=== PATIENT | female | born 1960 | race Caucasian/White ===

== ENCOUNTER → 2020-05-14 | Outpatient (CLI) | payer OTHER ==
--- NOTE | 2020-05-14 13:44 | REP ---
INDICATION: Z12.31 SCREENING MAMMO. COMPARISON: None. TECHNIQUE: MLO and CC views of bilateral breasts performed with tomosynthesis. FINDINGS: Mild scattered fibroglandular tissue is present bilaterally. In the upper outer quadrant of the right breast 2 oval smoothly marginated nodules are visualized, 1 measuring 9 x 5 mm and the other 6 mm. These appear to represent lucent centers and I suspect these represent intramammary lymph nodes. On the left posteriorly and inferiorly there is a partially visualized somewhat nodular opacity. On the CC view it measures about 5 mm. Is questionably seen posteriorly on the MLO view. No other evidence of mass or clustered microcalcifications. The Volpara volumetric breast density pattern is A. IMPRESSION: BIRADS/ACR category 0, incomplete. Possible posteroinferior nodular opacity left breast. Recommend spot compression views and ultrasound to further evaluate. On the right there are 2 suspected subcentimeter intramammary lymph nodes in the upper outer quadrant. Recommend ultrasound to confirm. This patient's Tyrer-Cuzick lifetime breast cancer risk assessment score is 6.9%. This mammogram was interpreted with the aid of an FDA-approved computer-aided detection system. The patient states she had a clinical breast exam in April 2020. The patient letter being requested is M0. RECOMMENDATION: Recommend spot compression views left breast and bilateral breast ultrasound as discussed in detail above. <Electronically signed by Goran Escudero > 05/14/20 [id number]
== END ==
LOC: M WHC 12:22
PROVIDERS: ATTEND Obstetrics & Gynecology
DX: Z12.31 Encounter for screening mammogram for malignant neoplasm of breast (principal); N63.11 Unspecified lump in the right breast, upper outer quadrant

== ENCOUNTER → 2020-06-13 | Outpatient (CLI) | payer OTHER ==
--- NOTE | 2020-06-13 12:36 | REP ---
INDICATION: ADDITIONAL VIEWS LT BREAST; ADDITIOAN VIEW LT BREAST . COMPARISON: Comparison mammography 14 May 2020. TECHNIQUE: Magnified focal spot-compression CC mL and MLO views of the left breast are obtained. Targeted left breast sonography is carried out. Targeted right breast sonography is carried out due to the findings of a 2 small mixed density nodular structures in the upper outer quadrant on the right on screening mammography. This mammogram was interpreted with the aid of an FDA-approved computer-aided detection system. FINDINGS: Diagnostic mammography demonstrates a questionable 5 mm nodular opacity in the posterior aspect of the left breast at 6 o'clock. The breast is otherwise predominantly fat replaced. A. Targeted ultrasound: Right breast sonography is performed. A 5 mm hypoechoic areas seen at 11 o'clock consistent with a small cyst. No other sonographic abnormality is noted in the right breast. The left breast sonography inferiorly demonstrates a 6.7 x 5.1 x 4.5 cm oval-shaped hypoechoic lesion located 7.0 cm from the nipple which is felt to account for the mammographic opacity. Appearance suggests clustered microcysts or hypoechoic nodule. It does not meet criteria of a simple cyst. No other sonographic abnormality is seen. IMPRESSION: BIRADS/ACR category 4 suspicious left breast mammographic and sonographic findings. 7 mm hypoechoic lesion at 6 o'clock most likely accounting for the mammographic density. Histologic sampling recommended. BI-RADS category 2 sonographic findings on the right. This patient's Tyrer-Cuzick lifetime breast cancer risk assessment score is 6.9%. RECOMMENDATION: Ultrasound-guided needle biopsy procedure recommended 6 o'clock position left breast with marker clip placement and post clip placement left breast mammography.. The patient letter being requested is M4. <Electronically signed by Marquise Read > 06/13/20 [id number]
== END ==
LOC: M WHC 09:47
PROVIDERS: ATTEND Advanced Practice Midwife
DX: R92.8 Other abnormal and inconclusive findings on diagnostic imaging of breast (principal); N63.23 Unspecified lump in the left breast, lower outer quadrant

== ENCOUNTER → 2020-07-17 | Outpatient (CLI) | payer OTHER ==
[~2020-07-17] MED LIST: PROT1TAB2 PO
[2020-07-17 10:10] VITALS: BP 148/84
--- NOTE | 2020-07-17 10:25 | REP ---
INDICATION: US GUIDED BX/R92.8 ABN LEFT BREAST MAMMO. COMPARISON: Comparison mammography May 14, 2020. Comparison sonography June 13, 2020.. TECHNIQUE: Mediolateral, MLO, and CC views of the left breast are obtained post clip placement. FINDINGS: The needle biopsy marker clip is seen in good position far posteriorly in the 6 o'clock position of the left breast where prior mammography showed the small nodule. No evidence of hematoma. IMPRESSION: Needle biopsy marker clip in good position left breast 6 o'clock position. <Electronically signed by Marquise Read > 07/17/20 [id number]
--- NOTE | 2020-07-17 10:46 | REP ---
INDICATION: R92.8 ABN LEFT MAMMO/US GUIDED BX. COMPARISON: Comparison sonography June 13, 2020.. TECHNIQUE: Sonographic guidance. FINDINGS: Ultrasound guidance is provided to Dr. Almonte performed ultrasound-guided needle biopsy procedure of the left breast 6 o'clock lesion with marker clip placement. IMPRESSION: Procedural imaging. <Electronically signed by Marquise Read > 07/17/20 [id number]
--- NOTE | 2020-07-20 12:09 | ROOPDOC ---
[facility] Report Of Operation Report of Operation DATE OF PROCEDURE: 07/17/20 DIAGNOSIS: left breast suspicious lesion PROCEDURE: Ultrasound guided biopsy of left breast suspicious lesion with clip placement SURGEON: Jeremy Lopez BLOOD LOSS: minimal COMPLICATIONS: none Lidocaine 1% LOT [id number] Expiration 07/2023 Sodium Bicarbonate 8.4% LOT [id number] Expiration 05/2021 Hydromark clip LOT [id number] Expiration 02/2023 SHAPE : 3 Bx device: BARD [id number] x10 cm LOT [id number] Expiration 04/2021 Informed consent was obtained. The most common risk and possible complications including bleeding, hematoma, bruising, infection, injury to surrounding structures were explained to the patient and the patient expressed understanding. Patient was placed on the bed in the supine position. Appropriate time out was done stating patients name, date of , and the procedure to be performed. The left breast was prepped and draped in the usual fashion. The ultrasound was used to confirm the location of the lesion in the left breast at 6:00 4 centimeters from the nipple. Plain Lidocaine 1% and 8.4% sodium bicarbonate 10:1 mix was used to anesthetize the skin, the biopsy site and tissues along the anticipated biopsy tract. Small skin incision was made with blade number 11. BARD Marquee 14G cannula with introducer ([id number]) was inserted through the incision and advanced under the ultrasound guidance to position immediately adjacent to the lesion. Next, the introducer was removed and BARD Marquee 14G biopsy device was places in the cannula. Pre-biopsy imaging, and post-biopsy imaging were captured. Three good core biopsies were taken at various levels of the lesion. No additional biopsies were taken as the lesion became poorly visible on sono. Specimen was placed in formaldehyde, labeled with appropriate biopsy site and patients name, and sent to pathology for evaluation. Next, the biopsy device was withdrawn and a clip introducer was inserted into the biopsy site via the cannula. The SHAPE 3 Hydromark clip was deployed under sonographic guidance. Post-clip placement image was captured. Manual pressure over the biopsy cavity and tract was held after the clip introducer was withdrawn. No bleeding was noted upon removal of the pressure. Post-biopsy mammogram of the left breast was obtained and showed clip in expected position. Postprocedural dressing was placed. Patient tolerated procedure well. Discharge instructions were discussed with the patient and the patient expressed understanding. JEREMY LOPEZ DO Jul 20, 2020 12:09
== END ==
LOC: M WHCPRO 06:31
PROVIDERS: ATTEND Surgery
DX: N60.92 Unspecified benign mammary dysplasia of left breast (principal)

== ENCOUNTER → 2020-08-01 | Outpatient (CLI) | payer OTHER ==
[~2020-08-01] MED LIST changes: +ULTR50TA8 PO
== END ==
LOC: M LABSMTC 10:45
PROVIDERS: ATTEND Anesthesiology
DX: Z01.812 Encounter for preprocedural laboratory examination (principal); Z20.822 Contact with and (suspected) exposure to COVID-19

== ENCOUNTER 2020-08-06 08:25 | Day surgery (SDC) | payer OTHER ==
[~2020-08-06] VITALS: Ht 149.9 cm; Wt 102.1 kg
[~2020-08-06 08:25] MED LIST changes: +HEPARIN SOD (PORCINE) 5000UNITS/ML 1ML VIAL/SYRINGE SQ ONE; +LR 1,000 ML IV ONE; +NS 1,000 ML IV SCH; -ULTR50TA8 PO
[2020-08-06] MEDS ORDERED: ceFAZolin 2 GM/D5W 50 ML IV BAG (J0690 PER 500MG) As Ordered ONE (09:09)
[2020-08-06] MEDS ORDERED: LIDOCAINE 1% MDV 20ML VIAL As Ordered ONE (09:30)
[2020-08-06] MEDS ORDERED: BUPIVACAINE HCL 0.25% 10ML VIAL As Ordered ONE (09:30)
[2020-08-06] MEDS ORDERED: CLINDAMYCIN 900 MG/50 ML PREMIX BAG As Ordered ONE (09:30)
[2020-08-06] MEDS ORDERED: CLINDAMYCIN 900 MG in IV 1 EA IV ONE (09:45)
[2020-08-06] MEDS ORDERED: MIDAZOLAM INJ 2MG/2ML VIAL (J2250 PER 1MG) As Ordered ONE (10:05)
[2020-08-06] MEDS ORDERED: dexameTHASONE 4 MG/ML 1ML VIAL (J1100 PER 1MG) As Ordered ONE (10:05)
[2020-08-06] MEDS ORDERED: ONDANSETRON 4MG/2ML VIAL As Ordered ONE (10:05)
[2020-08-06] MEDS ORDERED: fentaNYL 250 MCG/5 ML INJECTION (J3010) As Ordered ONE (10:05)
[2020-08-06] MEDS ORDERED: propofoL 200 MG/20 ML VIAL As Ordered ONE (10:05)
[2020-08-06] MEDS ORDERED: PHENYLephrine 500MCG 5ML (100MCG/ML) SYRINGE As Ordered ONE ×2 (10:05→10:23)
[2020-08-06] MEDS ORDERED: LIDOCAINE 2% 100MG/5ML SDV (FOR ANES.) As Ordered ONE (10:05)
[2020-08-06] MEDS ORDERED: ROCURONIUM BROMIDE 50 MG/5 ML VIAL As Ordered ONE (10:05)
[2020-08-06] MEDS ORDERED: ACETAMINOPHEN 1000MG 100ML IV BTL (OFIRMEV) (J0131 PER 10MG) As Ordered ONE (10:59)
--- NOTE | 2020-08-06 10:59 | REP ---
INDICATION: LEFT ATYPICAL DUCTAL HYPERPLASIA. COMPARISON: Mammogram 07/17/2020, ultrasound 06/13/2020. TECHNIQUE: Ultrasound guidance was provided for Dr. Almonte performed ultrasound-guided wire localization of the HydroMARK clip in the posterior left breast. FINDINGS: Ultrasound guidance was provided for Dr. Almonte performed ultrasound-guided wire localization of the HydroMARK clip in the posterior left breast. IMPRESSION: Ultrasound guidance was provided for Dr. Almonte performed ultrasound-guided wire localization of the HydroMARK clip in the posterior left breast. <Electronically signed by Goran Escudero > 08/06/20 2317
[2020-08-06] MEDS ORDERED: ePHEDrine SULFATE 25 MG/5 ML(5MG/ML) SYRINGE As Ordered ONE (11:00)
[2020-08-06] MEDS ORDERED: SUGAMMADEX SODIUM 500 MG/5 ML VIAL (BRIDION) As Ordered ONE (11:03)
[2020-08-06] MEDS ORDERED: ULTR50TA8 PO (11:42)
[2020-08-06] MEDS ORDERED: fentaNYL 100 MCG/2 ML INJECTION (J3010) IV PRN (11:55)
[2020-08-06] MEDS ORDERED: METOCLOPRAMIDE INJ 10MG/2ML VIAL (J2765 PER 1) IV PRN (11:55)
[2020-08-06] MEDS ORDERED: LR 1,000 ML IV SCH (11:55)
[2020-08-06] MEDS ORDERED: oxyCODONE 5MG TAB PO PRN (11:55)
[2020-08-06] MEDS ORDERED: ONDANSETRON 4MG/2ML VIAL IV PRN (11:55)
[2020-08-06 13:13] VITALS: BP 132/82
--- NOTE | 2020-08-08 16:49 | REP ---
INDICATION: LEFT ATYPICAL DUCTAL HYPERPLASIA. COMPARISON: 07/17/2020. TECHNIQUE: Two specimen radiographs performed following lumpectomy. FINDINGS: Previously identified biopsy clip is noted within the surgical specimen. The closest tissue margin to the clip is approximately 8 mm. IMPRESSION: Biopsy clip within the surgical specimen status post lumpectomy. RECOMMENDATION: Clinical follow-up. <Electronically signed by Goran Escudero > 08/08/20 [id number]
== END 2020-08-06 14:01 | disposition home or self-care (01) ==
LOC: M SDC 08:25
PROVIDERS: ATTEND Surgery
DX: N60.82 Other benign mammary dysplasias of left breast (principal); K21.9 Gastro-esophageal reflux disease without esophagitis; E03.9 Hypothyroidism, unspecified; M79.7 Fibromyalgia; K90.0 Celiac disease; M32.9 Systemic lupus erythematosus, unspecified; K57.92 Diverticulitis of intestine, part unspecified, without perforation or abscess without bleeding; F41.9 Anxiety disorder, unspecified; Z80.9 Family history of malignant neoplasm, unspecified; Z79.899 Other long term (current) drug therapy; Z87.891 Personal history of nicotine dependence
CPT/HCPCS: 19125; 36415; 76942; 86850; 86900; 86901; 88307; J0131; J1100; J1644; J2250; J2370; J2405; J3010

== ENCOUNTER → 2020-08-08 | Outpatient (CLI) | payer OTHER ==
[~2020-08-08] MED LIST changes: -HEPARIN SOD (PORCINE) 5000UNITS/ML 1ML VIAL/SYRINGE SQ ONE; -LR 1,000 ML IV ONE; -NS 1,000 ML IV SCH; +ULTR50TA8 PO
== END ==
LOC: M PLAIMG 12:51
PROVIDERS: ATTEND Surgery
DX: Z80.0 Family history of malignant neoplasm of digestive organs (principal)

== ENCOUNTER 2020-09-06 09:51 | Observation (INO) | payer OTHER ==
[~2020-09-06] VITALS: Ht 152.4 cm; Wt 101.8 kg
[2020-09-06] MEDS ORDERED: ONDANSETRON 4MG/2ML VIAL IV ONE (10:05)
[2020-09-06] MEDS ORDERED: MORPHINE 4 MG/ML 1ML VIAL/SYRINGE (J2270) IV PRN (10:05)
[2020-09-06 10:43] LABS: BASO % 0.2 % (0.0-1.0); EOS # 0.1 10^3/uL (0.0-0.5); EOS % 0.7 % (0.0-3.0); HEMATOCRIT 38.3 % (36.0-47.0); HEMOGLOBIN 11.8 g/dl (12.0-15.5); LYMPH # 2.7 10^3/uL (1.5-5.0); LYMPH % 22.8 % (24.0-44.0); MEAN CORPUSCULAR HEMOGLOBIN 27.4 pg (27.0-33.0); MEAN CORPUSCULAR HGB CONC 30.8 g/dl (32.0-36.5); MEAN CORPUSCULAR VOLUME 89.1 fl (80.0-96.0); MONO # 0.7 10^3/uL (0.0-0.8); MONO % 5.9 % (2.0-8.0); NEUTROPHILS # 8.2 10^3/uL (1.5-8.5); PLATELET COUNT, AUTOMATED 365 10^3/uL (150-450); WHITE BLOOD COUNT 11.7 10^3/uL (4.0-10.0)
--- NOTE | 2020-09-06 10:48 | REP ---
INDICATION: abd pain - prior gastric bypass COMPARISON: None. TECHNIQUE: CT Scan of the abdomen and pelvis was performed without intravenous contrast. Sagittal and coronal reconstruction images performed. FINDINGS: Lung bases: Unremarkable. Liver: There is diffuse fatty infiltration of the liver. Gallbladder: Moderately distended with no definite wall thickening. Spleen: Grossly unremarkable. Adrenals: Normal. Pancreas: Grossly unremarkable.. Kidneys: No hydronephrosis or nephrolithiasis. Ureters demonstrate no dilatation or calculus. Small and large bowel: No free air and no definite bowel wall thickening. Prior gastric surgery. Free fluid: None. Abdominal aorta: No aneurysm. Adenopathy: None. Appendix: Not inflamed. Osseous structures: Unremarkable. Pelvis: No mass. No bladder calculus seen. Prior hysterectomy. IMPRESSION: Moderately distended gallbladder with no definite wall thickening. No free air or free fluid. Diffuse fatty infiltration of the liver. <Electronically signed by Goran Escudero > 09/06/20 [id number]
[2020-09-06 11:02] LABS: BLOOD UREA NITROGEN 13 MG/DL (7-18); CALCIUM LEVEL 8.5 MG/DL (8.5-10.1); CARBON DIOXIDE LEVEL 27 MEQ/L (21-32); CHLORIDE LEVEL 108 MEQ/L (98-107); CREATININE FOR GFR 0.86 MG/DL (0.55-1.30); GLOMERULAR FILTRATION RATE > 60.0 (>51); GLUCOSE, FASTING 123 MG/DL (70-100); POTASSIUM SERUM 4.1 MEQ/L (3.5-5.1); SODIUM LEVEL 139 MEQ/L (136-145)
[2020-09-06 11:07] LABS: ALBUMIN 3.4 GM/DL (3.2-5.2); BILIRUBIN,DIRECT 0.1 MG/DL (0.0-0.2); BILIRUBIN,TOTAL 0.2 MG/DL (0.2-1.0)
--- NOTE | 2020-09-06 12:00 | REP ---
INDICATION: abd pain. COMPARISON: CT today. TECHNIQUE: Real-time sonographic evaluation of right upper quadrant performed. FINDINGS: The gallbladder is distended measuring 10.7 x 4.4 x 5.0 cm. There is very mild intraluminal sludge but no stones are visualized. There is no gallbladder wall thickening. There is no free fluid. There is no intrahepatic or extrahepatic biliary dilatation, common bile duct measures 5 mm in maximum diameter. The liver is enlarged with a length of 21.2 cm, with diffuse increased echotexture consistent with diffuse fatty infiltration. The pancreas demonstrates homogeneous echotexture with no gross mass. The right kidney demonstrates no hydronephrosis, with a normal size of 11.5 cm in length. No free fluid is seen. IMPRESSION: The gallbladder is distended measuring 10.7 x 4.4 x 5.0 cm. There is very mild intraluminal sludge but no stones are visualized. There is no gallbladder wall thickening. There is no free fluid or biliary dilatation. Patient is quite tender at the gallbladder. Cholecystitis is not excluded. <Electronically signed by Goran Escudero > 09/06/20 [id number]
[2020-09-06] MEDS ORDERED: ONDANSETRON 4MG/2ML VIAL IV PRN (13:10)
[2020-09-06] MEDS ORDERED: D5W/LR 1,000 ML IV SCH (13:10)
[2020-09-06] MEDS ORDERED: MORPHINE 2 MG/ML 1ML VIAL (J2270) IV PRN ×2 (13:10)
[2020-09-06] MEDS ORDERED: LEVO500T3 PO (13:52)
[2020-09-06 14:00] VITALS: BP 134/63
[2020-09-06] MEDS ORDERED: KETOROLAC 30 MG/ML 1ML VIAL IV SCH (14:00)
[2020-09-06] MEDS ORDERED: DOCUSATE SODIUM 100MG CAPSULE PO SCH (21:00)
--- NOTE | 2020-09-06 23:38 | CR ---
CONSULTATION DATE: 09/06/2020 REASON FOR CONSULTATION: Acute cholecystitis. BRIEF HISTORY OF PRESENT ILLNESS: The patient is a 60-year-old female status post gastric bypass who presents to the Emergency Room after approximately 8 hours of severe abdominal pain, mostly starting in the epigastric area but radiated up to the right upper quadrant and all along the right subcostal area. It has been quite severe in this area. The patient was given pain medication. White count was elevated at 11.7 and did have a slightly elevated AST of 48 but otherwise other liver function tests were normal. Imaging revealed a normal appearing gallbladder with some gallbladder sludge and no gallbladder wall thickening, however the patient did have some tenderness overlying the gallbladder itself. CAT scan was performed of the abdomen and pelvis given her previous gastric bypass surgery and revealed no dilated small bowel and no evidence of obstruction. No evidence of internal hernia. PAST MEDICAL HISTORY: The patient's past medical history is significant for: 1. History of celiac disease. 2. History of GE reflux. 3. History of chronic pain. 4. History of degenerative joint disease. 5. History of fibromyalgia. 6. History of diverticulitis. PAST SURGICAL HISTORY: The patient's past surgical history is significant for: 1. History of hysterectomy. 2. History of gastric bypass. MEDICATIONS: 1. Pantoprazole. 2. Tramadol. PHYSICAL EXAMINATION: GENERAL APPEARANCE: A 60-year-old female who looks stated age. HEENT: Unremarkable. NECK: Supple without adenopathy. LUNGS: Clear to auscultation without crackles, wheezes or rhonchi. HEART: Regular, without murmur. ABDOMEN: Softly distended, tender throughout the epigastric area and the right upper quadrant but specifically in the right upper quadrant with some guarding without significant rebound. EXTREMITIES: Warm and well perfused. IMPRESSION AND PLAN: The patient has clinical evidence of probable acute cholecystitis although given the white count is slightly elevated, I would have expected some increased inflammatory changes of the gallbladder itself which suggests one of two things. Either it is early on in the inflammatory process and we are not seeing evidence of the edema or the pain is out of proportion to the clinical presentation. In any case, my recommendation at this time was to admit her, give her IV fluids, IV antibiotics, and probable laparoscopic cholecystectomy during this admission or possibly after discharge. However, the patient was to undergo a COVID swab and refused this and essentially decided to leave [facility]. Thus at this point my recommendation to the E.R. staff was to give her some IV antibiotics and keep her on a clear liquid diet and have her follow up as an outpatient.
== END 2020-09-06 14:08 | disposition left against medical advice (07) ==
LOC: M ED 09:51 → EDBD 09:51 → M ED INP 13:07
PROVIDERS: ADMIT Surgery; ATTEND Surgery
DX: K81.0 Acute cholecystitis (principal); Z53.29 Procedure and treatment not carried out because of patient's decision for other reasons; K21.9 Gastro-esophageal reflux disease without esophagitis; K90.0 Celiac disease; G89.29 Other chronic pain; M19.90 Unspecified osteoarthritis, unspecified site; Z98.84 Bariatric surgery status; E03.9 Hypothyroidism, unspecified; M79.7 Fibromyalgia; K57.92 Diverticulitis of intestine, part unspecified, without perforation or abscess without bleeding; Z79.899 Other long term (current) drug therapy; F41.9 Anxiety disorder, unspecified; Z88.0 Allergy status to penicillin; Z91.040 Latex allergy status; Z91.041 Radiographic dye allergy status; Z91.011 Allergy to milk products
CPT/HCPCS: 74176; 76705; 80048; 80076; 83690; 85025; 96374; 96375; 99284; J2270; J2405